=== PATIENT | male | born 1965 | race Caucasian/White ===

== ENCOUNTER 2017-07-22 18:47 | Emergency (ER) | payer OTHER ==
[~2017-07-22] VITALS: Ht 167.6 cm; Wt 68.0 kg
[2017-07-22 18:55] VITALS: BP 141/87
[2017-07-22] MEDS ORDERED: CLINDAMYCIN HCL 150 MG CAPSULE PO ONE ×2 (18:59→19:00)
[2017-07-22] MEDS ORDERED: KETOROLAC TROMETHAMINE INJ 30 MG/ML VIAL ONE (18:59)
[2017-07-22] MEDS ORDERED: KETOROLAC TROMETHAMINE INJ 60 MG/2 ML VIAL IM ONE (19:00)
--- NOTE | 2017-07-22 19:09 | NUR ---
PT NOT MEDICALLY CLEARED FOR BOOKING, [employer] PROVIDED WITH D/C INSTRUCTION.
== END 2017-07-22 19:11 ==
LOC: ER 18:50
DX: M27.2 Inflammatory conditions of jaws (principal); L73.9 Follicular disorder, unspecified; Z60.2 Problems related to living alone
CPT/HCPCS: A4606; J1885; Z7610